=== PATIENT | male | born 1995 | race Two or more races ===

== ENCOUNTER 2019-11-10 01:18 | Emergency (ER) | payer SELFPAY ==
[~2019-11-10] VITALS: Ht 175.3 cm; Wt 90.9 kg
[2019-11-10 03:34] VITALS: BP 135/72
== END 2019-11-10 03:35 | disposition home or self-care (01) ==
LOC: EMS 01:18
DX: F43.25 Adjustment disorder with mixed disturbance of emotions and conduct (principal)